=== PATIENT | male | born 1950 | race Caucasian/White ===

== ENCOUNTER 2019-01-29 10:05 | Outpatient (CLI) | payer MEDICARE, OTHER ==
--- NOTE | 2019-01-29 10:54 | Diagnostic Imaging Report ---
CASTILLO ALBRIGHT [facility] [id number] [facility] [address] [id number] Report Submission Date: Jan 29, 2019 10:32:44 AM CDT Patient Study Name: SHANTANU BELLO Date: Jan 29, 2019 10:06:40 AM CDT Modality Type: DX Gender: M Description: BILAT FEET 3 VIEW : 50 Institution: [facility] Physician: CASTILLO ALBRIGHT Examination: Plain film feet History: RT FOOT PAIN AND DEFORMITY Findings: 3 views of the right and left foot demonstrates osteopenia. 1st digit metatarsophalangeal degenerative changes and mild hallux valgus deformity. No acute appearing cortical abnormality. Calcaneal spurs. Impression: Osteopenia and degenerative changes. 1st digit hallux valgus deformity. Electronically signed on Jan 29, 2019 10:32:44 AM CDT by: David THOMPSON
== END 2019-01-29 10:07 ==
LOC: RAD 10:05
PROVIDERS: ATTEND Podiatrist Foot & Ankle Surgery
DX: M79.671 Pain in right foot (principal)